=== PATIENT | male | born 1975 | race Caucasian/White ===

== ENCOUNTER 2021-03-01 15:50 | Emergency (ER) | payer OTHER ==
[~2021-03-01 15:50] MED LIST: BACTRIM DS TAB1 EACH PO; COZAAR 25MG TAB25 MG PO; DEPO-TESTO200 MG/1 M SC; ENTRESTO 24 MG1 EACH PO; MUTIVITAMIN PO; NORCO 5-325 TA1 EACH PO; TOPROL XL 25MG25 MG PO; WELLBUTRIN75 MG PO
[2021-03-01 17:58] LABS: BILIRUBIN NEGATIVE (NEGATIVE); BLOOD TRACE-INTACT Ery/uL (NEGATIVE); CLARITY CLEAR (CLEAR); COLOR YELLOW (YELLOW); GLUCOSE (U) NORMAL (NORMAL); LEUKOCYTES NEGATIVE Leu/uL (NEGATIVE); NITRITE NEGATIVE (NEGATIVE); PROTEIN NEGATIVE (NEGATIVE); UROBILINOGEN 0.2 mg/dL (0.2-1.0)
[2021-03-01 18:03] LABS: URINARY RBC RARE
[2021-03-01] MEDS ORDERED: NORCO 5-325 TA1 EACH PO (20:15)
[2021-03-01] MEDS ORDERED: ZOFRAN4 M1 PO (20:15)
== END 2021-03-01 20:50 | disposition home or self-care (01) ==
LOC: FER 15:50
PROVIDERS: Emergency Medicine
DX: N50.811 Right testicular pain (principal); Z79.899 Other long term (current) drug therapy
CPT/HCPCS: 76870; 81001

== ENCOUNTER 2021-08-20 20:42 | Emergency (ER) | payer OTHER ==
[~2021-08-20 20:42] MED LIST changes: +ZOFRAN4 M1 PO
== END 2021-08-20 21:25 | disposition home or self-care (01) ==
LOC: FER 20:42
DX: S05.02XA Injury of conjunctiva and corneal abrasion without foreign body, left eye, initial encounter (principal); I10 Essential (primary) hypertension; W54.1XXA Struck by dog, initial encounter; Y92.009 Unspecified place in unspecified non-institutional (private) residence as the place of occurrence of the external cause
CPT/HCPCS: 99282